=== PATIENT | female | born 1965 | race African-American/Black ===

== ENCOUNTER 2017-11-04 23:41 | Emergency (ER) | payer SELFPAY ==
[~2017-11-04] VITALS: Ht 167.6 cm; Wt 100.0 kg
[2017-11-05] MEDS ORDERED: IBUPROFEN 800MG TABLET PO ONE (01:15)
[2017-11-05] MEDS ORDERED: CYCLOBENZAPRINE 10MG TABLET PO ONE (01:15)
[2017-11-05 01:45] VITALS: BP 127/79
== END 2017-11-05 01:45 | disposition home or self-care (01) ==
LOC: ER 23:41
DX: M54.5 Low back pain (principal); V49.88XA Car occupant (driver) (passenger) injured in other specified transport accidents, initial encounter; Y93.89 Activity, other specified; Y92.89 Other specified places as the place of occurrence of the external cause; Y99.8 Other external cause status
CPT/HCPCS: 99283